=== PATIENT | male | born 1945 | race Caucasian/White ===

== ENCOUNTER 2021-09-09 04:44 | Outpatient (RCR) | payer OTHER, MEDICARE, SELFPAY ==
[2021-08-26 08:57] LABS: Abs Immature Grans 0.03 10^3/uL (0.0-0.06); Absolute Basophil Count 0.07 10^3/uL (0.0-0.2); Absolute Eosinophil Count 0.49 10^3/uL (0.0-0.7); Absolute Lymphocyte Count 1.54 10^3/uL (1.2-3.4); Absolute Monocyte Count 0.85 10^3/uL (0.1-0.8); Absolute Neutrophil Count 7.53 10^3/uL (1.2-6.7); Basophils % 0.7; Eosinophils % 4.7; HCT 37.4 % (40.0-50.0); HGB 12.1 g/dL (13.5-17.5); Immature Grans % 0.3; Lymphocytes % 14.7; MCH 29.3 pg (27.0-33.0); MCHC 32.4 % (32.0-36.0); MCV 90.6 fL (80-95); MPV 7.7 fL (8.0-11.0); Monocytes % 8.1; Neutrophils % 71.5; Nucleated RBC 0 %; Platelet Count 225 10^3/uL (130-400); RBC 4.13 10^6/uL (4.36-5.78); RDW 12.6 % (11.8-14.1); RDW-SD 41.7 fL; WBC 10.51 10^3/uL (4.4-10.8)
[2021-08-26] MEDS: Normal Saline Flush 10 ML SYR IVP (08:57)
[2021-08-26 09:18] LABS: ALT 13 U/L (16-63); AST 14 U/L (15-37); Albumin 3.5 g/dL (3.4-5.0); Alkaline Phosphatase 89 U/L (46-116); Anion Gap 7.8 mmol/L (3-11); BUN 20 mg/dL (7-18); Bilirubin, Total 0.6 mg/dL (0.2-1.0); CO2 28.2 mmol/L (21.0-32.0); CREATININE 1.1 mg/dL (0.70-1.30); Calcium 10.1 mg/dL (8.5-10.1); Chloride 102 mmol/L (98-107); Glucose 108 mg/dL (74-106); Magnesium 2.1 mg/dL (1.8-2.4); Potassium 3.8 mmol/L (3.5-5.1); Sodium 138 mmol/L (136-145); Total Protein 7.7 g/dL (6.4-8.2)
[2021-09-09] MEDS: Normal Saline Flush 10 ML SYR IVP (13:08)
[2021-09-09 13:22] LABS: Absolute Monocyte Count 1.09 10^3/uL (0.1-0.8); HCT 30.7 % (40.0-50.0); MCHC 32.6 % (32.0-36.0); MPV 8.2 fL (8.0-11.0); Platelet Count 195 10^3/uL (130-400); RBC 3.45 10^6/uL (4.36-5.78); RDW 12.7 % (11.8-14.1); WBC 10.94 10^3/uL (4.4-10.8)
[2021-09-09 13:53] LABS: ALT 23 U/L (16-63); AST 19 U/L (15-37); Albumin 3.2 g/dL (3.4-5.0); Alkaline Phosphatase 121 U/L (46-116); Anion Gap 6.8 mmol/L (3-11); BUN 24 mg/dL (7-18); Bilirubin, Total 0.2 mg/dL (0.2-1.0); CO2 27.2 mmol/L (21.0-32.0); CREATININE 1.2 mg/dL (0.70-1.30); Chloride 104 mmol/L (98-107); Estimated GFR 59.02 (mL/min/1.73m2); Glucose 121 mg/dL (74-106); Potassium 3.9 mmol/L (3.5-5.1); Sodium 138 mmol/L (136-145)
[2021-09-09 13:58] LABS: Absolute Lymphocyte Count 2.74 10^3/uL (1.2-3.4); Absolute Neutrophil Count 6.78 10^3/uL (1.2-6.7); Atypical Lymphocytes % 1; Bands % 1; Diff Comment Diff Reviewed; Metamyelocytes % 2; Myelocytes % 1; RBC Morphology Normal
== END 2021-09-13 23:59 | disposition home or self-care (01) ==
LOC: INF 04:44
PROVIDERS: Visit Provider Internal Medicine
DX: C67.9 Malignant neoplasm of bladder, unspecified (principal); Z45.2 Encounter for adjustment and management of vascular access device
CPT/HCPCS: 36591; 80053; 83735; 85025

== ENCOUNTER 2021-10-10 01:15 | Outpatient (RCR) | payer OTHER, MEDICARE, SELFPAY ==
[2021-09-23] MEDS: Normal Saline Flush 10 ML SYR IVP (10:07)
[2021-09-23 10:16] LABS: HCT 29.9 % (40.0-50.0); HGB 9.6 g/dL (13.5-17.5); MCHC 32.1 % (32.0-36.0); MCV 90 fL (80-95); MPV 8.3 fL (8.0-11.0); Platelet Count 163 10^3/uL (130-400); RBC 3.31 10^6/uL (4.36-5.78); RDW 12.9 % (11.8-14.1); WBC 11.67 10^3/uL (4.4-10.8)
[2021-09-23 10:29] LABS: ALT 26 U/L (16-63); AST 21 U/L (15-37); Albumin 3.4 g/dL (3.4-5.0); Alkaline Phosphatase 139 U/L (46-116); Anion Gap 7.9 mmol/L (3-11); BUN 18 mg/dL (7-18); Bilirubin, Total 0.2 mg/dL (0.2-1.0); CO2 27.1 mmol/L (21.0-32.0); Calcium 8.7 mg/dL (8.5-10.1); Chloride 105 mmol/L (98-107); Glucose 108 mg/dL (74-106); Magnesium 1.9 mg/dL (1.8-2.4); Sodium 140 mmol/L (136-145); Total Protein 6.9 g/dL (6.4-8.2)
[2021-09-23 10:37] LABS: Absolute Lymphocyte Count 2.68 10^3/uL (1.2-3.4); Bands % 1
[2021-09-23 10:38] LABS: Absolute Monocyte Count 0.93 10^3/uL (0.1-0.8); Diff Comment Diff Reviewed; Metamyelocytes % 3; RBC Morphology Normal
[2021-10-07] MEDS: Normal Saline Flush 10 ML SYR IVP (12:09)
[2021-10-07 12:16] LABS: Abs Immature Grans 0.19 10^3/uL (0.0-0.06); Absolute Basophil Count 0.05 10^3/uL (0.0-0.2); Absolute Eosinophil Count 0.03 10^3/uL (0.0-0.7); Absolute Lymphocyte Count 1.51 10^3/uL (1.2-3.4); Absolute Monocyte Count 0.92 10^3/uL (0.1-0.8); Basophils % 0.6; Eosinophils % 0.4; HCT 24.5 % (40.0-50.0); HGB 8.1 g/dL (13.5-17.5); Immature Grans % 2.4; Lymphocytes % 18.9; MCH 29.1 pg (27.0-33.0); MCHC 33.1 % (32.0-36.0); MCV 88 fL (80-95); MPV 8.9 fL (8.0-11.0); Monocytes % 11.5; Neutrophils % 66.2; Platelet Count 124 10^3/uL (130-400); RBC 2.78 10^6/uL (4.36-5.78); RDW 13.3 % (11.8-14.1); RDW-SD 40.6 fL
[2021-10-07 12:27] LABS: ALT 25 U/L (16-63); AST 17 U/L (15-37); Albumin 3.6 g/dL (3.4-5.0); Alkaline Phosphatase 143 U/L (46-116); Anion Gap 9.9 mmol/L (3-11); BUN 20 mg/dL (7-18); Bilirubin, Total 0.3 mg/dL (0.2-1.0); CO2 26.1 mmol/L (21.0-32.0); CREATININE 1.1 mg/dL (0.70-1.30); Calcium 8.8 mg/dL (8.5-10.1); Chloride 104 mmol/L (98-107); Glucose 142 mg/dL (74-106); Magnesium 1.5 mg/dL (1.8-2.4); Potassium 3.9 mmol/L (3.5-5.1); Sodium 140 mmol/L (136-145); Total Protein 6.9 g/dL (6.4-8.2)
[2021-10-10] MEDS: Normal Saline Flush 10 ML SYR IVP (08:06)
[2021-10-10 08:16] LABS: MCH 30.1 pg (27.0-33.0); MCHC 33.3 % (32.0-36.0); MCV 90 fL (80-95); MPV 8.7 fL (8.0-11.0); Platelet Count 111 10^3/uL (130-400); RBC 2.66 10^6/uL (4.36-5.78); RDW 14.4 % (11.8-14.1); RDW-SD 42.1 fL
[2021-10-10 08:22] LABS: WBC 28.65 10^3/uL (4.4-10.8)
[2021-10-10 08:28] LABS: Absolute Lymphocyte Count 1.72 10^3/uL (1.2-3.4); Absolute Neutrophil Count 26.93 10^3/uL (1.2-6.7); Bands % 5; Diff Comment Manual Differential; RBC Morphology Normal
[2021-10-10 09:45] VITALS: BP 139/77
[2021-10-10 10:05] VITALS: BP 99/60; PULSE 84; RESP 16; TEMP 36.2; O2SAT 98
[2021-10-10 10:20] VITALS: BP 102/59; PULSE 79; RESP 16; TEMP 36.1; O2SAT 98
[2021-10-10 10:50] VITALS: BP 108/68; PULSE 82; RESP 16; TEMP 36.2; O2SAT 97
[2021-10-10 11:52] VITALS: BP 110/66; PULSE 83; RESP 16; TEMP 35.9; O2SAT 98
[2021-10-10] MEDS: Heparin 500 UNITS/5 ML SYRINGE IV (11:54)
== END 2021-10-14 23:59 | disposition home or self-care (01) ==
LOC: INF 01:15
PROVIDERS: Visit Provider Internal Medicine
DX: C67.9 Malignant neoplasm of bladder, unspecified (principal); Z45.2 Encounter for adjustment and management of vascular access device
CPT/HCPCS: 36430; 36591; 80053; 86850; 86900; 86901; 86920; 83735; 85025; P9016